=== PATIENT | female | born 1960 | race Caucasian/White ===

== ENCOUNTER → 2021-07-22 | Outpatient (CLI) | payer OTHER | LOC: HEART 5 15:41 | DX: J44.9 Chronic obstructive pulmonary disease, unspecified (principal); R59.0 Localized enlarged lymph nodes | CPT/HCPCS: 94060; 94729 ==

== ENCOUNTER → 2021-08-05 | Day surgery (SDC) | payer OTHER ==
[~2021-08-05] MED LIST: ALBUTEROL2.5 MG/3 M INH; ALL DAY ALLERGY10 M2 PO; ASPIRIN EC81 MG PO; FLONASE ALLER15.8 ML; IBU800 MG PO; LISINOPRIL20 MG PO; PROAIR HFA8.5 GM INH; SPIRIVA INH; SYMBICORT 160-1 INHA INH
== END | disposition home or self-care (01) ==
LOC: OR 06:51 → EDSTATUS 09:30
DX: C34.90 Malignant neoplasm of unspecified part of unspecified bronchus or lung (principal); C96.9 Malignant neoplasm of lymphoid, hematopoietic and related tissue, unspecified; J44.9 Chronic obstructive pulmonary disease, unspecified; I51.89 Other ill-defined heart diseases; Z79.82 Long term (current) use of aspirin; Z20.822 Contact with and (suspected) exposure to COVID-19; Z98.51 Tubal ligation status; Z87.891 Personal history of nicotine dependence
CPT/HCPCS: 71045; J0330; J1100; J2370; J2405; J2704; J3010